=== PATIENT | male | born 1980 | race African-American/Black ===

== ENCOUNTER 2023-06-08 08:01 | Emergency (ER) | payer SELFPAY ==
[2023-06-08] MEDS ORDERED: Tetracaine HCl/PF 0.5% 4 ML Bottle EYELF ONE (08:32)
[2023-06-08] MEDS ORDERED: Erythromycin Base 0.5% Ophth Oint 1 GM Tube EYELF ONE (08:32)
[2023-06-08] MEDS ORDERED: Amoxicillin/Clavulanate K 875-125 MG Tab PO ONE (08:32)
[2023-06-08] MEDS ORDERED: Fluorescein 1 MG Ophth Strip EYELF ONE (08:32)
== END 2023-06-08 09:08 | disposition home or self-care (01) ==
LOC: MW.ED 08:01
DX: L03.213 Periorbital cellulitis (principal); H00.014 Hordeolum externum left upper eyelid
CPT/HCPCS: 99283; A9270; J3490